=== PATIENT | male | born 1970 | race Caucasian/White ===

== ENCOUNTER → 2019-07-30 | Outpatient (CLI) | payer BC ==
[2019-07-30 16:27] LABS: Anisocytosis Slight; Basophils % (A) 1 %; Eosinophils # (A) 0.2 k/uL (0-0.7); Eosinophils % (A) 5 %; HCT 34.2 % (39.0-53.0); HGB 9.9 gm/dL (13.0-17.5); Hypochromasia Marked; Lymphocytes # (A) 0.7 k/uL (1.0-4.8); Lymphocytes % (A) 22 %; MCH 20.3 pg (25.0-35.0); MCHC 29.1 g/dL (31.0-37.0); MCV 69.8 fL (80.0-100.0); Mean Platelet Volume 5.5; Microcytosis Marked; Monocytes # (A) 0.3 k/uL (0-1.0); Monocytes % (A) 10 %; Neutrophils # (A) 1.9 k/uL (1.3-7.7); Neutrophils % (A) 59 %; Platelet Count 271 k/uL (150-450); WBC 3.2 k/uL (3.8-10.6)
[2019-07-30 16:30] LABS: ALT 20 U/L (21-72); AST 20 U/L (17-59); African American GFR (CKD) >90 (>60 ml/min/1.73 sqM); Albumin 4.3 g/dL (3.5-5.0); Alkaline Phosphatase 53 U/L (38-126); Anion Gap 8 mmol/L; Blood Urea Nitrogen 12 mg/dL (9-20); Calcium 9.4 mg/dL (8.4-10.2); Carbon Dioxide 28 mmol/L (22-30); Chloride 103 mmol/L (98-107); Glucose 148 mg/dL (74-99); Potassium 4.3 mmol/L (3.5-5.1); Sodium 139 mmol/L (137-145); Total Bilirubin 0.3 mg/dL (0.2-1.3); Total Protein 7.3 g/dL (6.3-8.2)
== END | disposition home or self-care (01) ==
LOC: LABPAT 15:13
PROVIDERS: ATTEND Surgery
DX: Z01.812 Encounter for preprocedural laboratory examination (principal)
CPT/HCPCS: 36415; 80053; 85025; 93005

== ENCOUNTER → 2019-07-30 | Outpatient (CLI) | payer BC ==
[2019-07-30 13:23] VITALS: BP 144/80; PULSE 78; TEMP 98.3; BMI 29.6
--- NOTE | 2019-07-30 15:59 | P.HPBAR ---
Bariatric H&P - History & Physicial H&P Date: 07/30/19 History & Physicial: Visit/CC: lap band (night reflux) Patient initial contact: Initial weight: 161.025 kg Initial weight in pounds: 355.00 Height: 6 ft 8 in Initial BMI: 38.9 Last weight: Current weight: 122.289 kg Current weight in pounds: 269.60 Current BMI: 29.6 [place] body weight (based on NIH guidelines): 102.512 kg Excess body weight loss: 66.2% The patient is a 48 year-old M who presents for Bariatric Assessment. Patient resents today for her LAP-BAND adjustment. He's had chronic complaints of dysphagia and GERD. Several years. He has significant reflux at night. Past Medical History Past Medical History: Diabetes Mellitus, GERD/Reflux, Hypertension Additional Past Medical History / Comment(s): Type 2 DM and HTN controlled with medications History of Any Multi-Drug Resistant Organisms: None Reported Past Surgical History: Bariatric Surgery Additional Past Surgical History / Comment(s): Lap band placed 01-10-07 Dr. Rodriguez Past Anesthesia/Blood Transfusion Reactions: No Reported Reaction Past Psychological History: Depression Additional Psychological History / Comment(s): Pt takes Citalopram daily Smoking Status: Current some day smoker Past Alcohol Use History: None Reported Past Drug Use History: None Reported Surgical - Exam Vital Signs Temp Pulse BP 98.3 F 78 144/80 07/30/19 13:17 07/30/19 13:17 07/30/19 13:17 - General well developed, well nourished, no distress - Eyes PERRL - ENT normal pinna - Neck no masses - Respiratory normal expansion - Cardiovascular Rhythm: regular - Abdomen Abdomen: soft, tender Bariatric Assessment & Plan Plan: Patient's lap band was adjusted. 1 mL was removed from his band. The patient then underwent an esophagram and upper GI. The patient has a large prolapse of his LAP-BAND. The band has moved approximately 90. There is significant obstruction from this. The patient will need his LAP-BAND removed. He'll be scheduled for this next week. Patient was instructed on signs of dysphagia and epigastric pain. Patient will return immediately if he has any significant signs of obstruction or significant abdominal pain. Bariatric Checklist Checklist: Plan: Checklist: EGD: 1. Hiatal hernia: 2. H. Pylori: HgbA1c: Vitamin D: Smoking: Current some day smoker Primary care physician referral: Dr. Sylvester ([facility]) Psychiatry clearance: Cardiology clearance: Sleep study: Diet journal: VTE risk score: VTE risk level: Rehab needs at discharge:
--- NOTE | 2019-07-30 17:13 | FL ---
SINGLE CONTRAST BARIUM SWALLOW: CLINICAL HISTORY: 48-year-old male R13.10, pain at lap band, trouble clearing food across the lap ba nd. TECHNIQUE: Single contrast exam performed with only 1.5 ounces of thin barium. Total fluoroscopy time: 1 minute 51 seconds. Total images: 28. FINDINGS: The patient was instructed to take only small swallows at a time given the abnormal orientation of th e left and on the powerplant operator image. Initial imaging findings suggest lap band prolapse. Contrast traverses the esophagus and pools within the distal esophagus above the GE junction. The following a second sw allow, there is a thin stream of contrast which traverses the lap band. Following additional swallows , progressive pooling is demonstrated in the lower esophagus with intermittent episodes of intraesoph ageal reflux. Intermittent thin strands of contrast are demonstrated traversing the lap band. IMPRESSION: Lap band prolapse with moderate to severe obstruction. Patient ingested only 1.5 ounces of contrast. Episodes of intraesophageal reflux are demonstrated and intermittent thin streams of contrast nereyda e the lap band.
== END | disposition home or self-care (01) ==
LOC: BARWHC3 12:36
PROVIDERS: ATTEND Surgery
DX: Z46.51 Encounter for fitting and adjustment of gastric lap band (principal); R13.10 Dysphagia, unspecified; K21.9 Gastro-esophageal reflux disease without esophagitis; F17.200 Nicotine dependence, unspecified, uncomplicated; K95.09 Other complications of gastric band procedure; Z98.84 Bariatric surgery status
CPT/HCPCS: 74220; 99212

== ENCOUNTER 2019-08-27 05:59 | Day surgery (SDC) | payer BC ==
[2019-08-20 15:33] VITALS: BMI 29.6
[~2019-08-27 05:59] MED LIST: LACTATED RINGERS 1,000 ML IV SCH; LIDOCAINE 1% 20 ML VIAL (10MG/ML) FOR IV START INTRADERMA PRN; ONDANSETRON 4 MG/2 ML VIAL IVP ONE
[2019-08-27] MEDS ORDERED: ceFAZolin 3 GM in SODIUM CHLORIDE 0.9% 100 ML IVPB ONE (06:00)
[2019-08-27 06:42] LABS: Glucose,Whole Blood 131 mg/dL (75-99)
[2019-08-27] MEDS ORDERED: MIDAZOLAM 2 MG/2 ML VIAL ONE (07:53)
[2019-08-27] MEDS ORDERED: LIDOCAINE 1% INJ 10MG/ML (20 ML MDV) ONE (07:53)
[2019-08-27] MEDS ORDERED: PROPOFOL 10 MG/ML 20 ML VIAL IV ONE (07:53)
[2019-08-27] MEDS ORDERED: SUCCINYLCHOLINE CHLORIDE 100 MG/5 ML SYR IV ONE (07:53)
[2019-08-27] MEDS ORDERED: ROCURONIUM BROMIDE 10 MG/ML 10 ML VIAL IV ONE (07:53)
[2019-08-27] MEDS ORDERED: GLYCOPYRROLATE 0.2 MG/ML 2 ML VIAL ONE (07:53)
[2019-08-27] MEDS ORDERED: KETOROLAC 30 MG/ML 1 ML VIAL ONE (07:53)
[2019-08-27] MEDS ORDERED: fentaNYL (PF) 50 MCG/ML 2 ML AMP ONE (07:53)
[2019-08-27] MEDS ORDERED: NEOSTIGMINE 1 MG/ML 10 ML VIAL ONE (07:53)
--- NOTE | 2019-08-27 07:55 | P.GSHP ---
History of Present Illness H&P Date: 08/27/19 Chief Complaint: Dysphagia This a 48-year-old male who had LAP-BAND surgery performed over 12 years ago. Patient presents today for laparoscopic removal of LAP-BAND system. Patient is mild dysphagia related to gastric prolapse. Past Medical History Past Medical History: Diabetes Mellitus, GERD/Reflux, Hypertension Additional Past Medical History / Comment(s): TYPE 2 DIABETES, ANEMIA- TO START ON IRON SUPPLEMENT ., LAP BAND PROLAPSE. History of Any Multi-Drug Resistant Organisms: None Reported Past Surgical History: Bariatric Surgery Additional Past Surgical History / Comment(s): Lap band placed 01-10-07 Dr. Rodriguez Past Anesthesia/Blood Transfusion Reactions: No Reported Reaction Past Psychological History: Depression Additional Psychological History / Comment(s): . Smoking Status: Current some day smoker Past Alcohol Use History: None Reported Additional Past Alcohol Use History / Comment(s): SMOKES OCCASIONAL CIGAR IN THE LAST 5 YEARS. Past Drug Use History: None Reported - Past Family History Mother Family Medical History: No Reported History Medications and Allergies Home Medications Medication Instructions Recorded Confirmed Type Citalopram Hydrobromide 10 mg PO DAILY 07/30/19 08/20/19 History [Citalopram HBr] Lisinopril [Zestril] 20 mg PO DAILY 07/30/19 08/20/19 History Multivitamins, Thera [Multivitamin 1 tab PO DAILY 07/30/19 08/20/19 History (formulary)] glipiZIDE [Glucotrol] 10 mg PO [id number] 07/30/19 08/20/19 History Fexofenadine HCl [Jami Allergy] 180 mg PO DAILY PRN 08/20/19 08/20/19 History Iron (States New Prescription) 1 tab PO DIRECTED 08/20/19 08/27/19 History Allergies Allergy/AdvReac Type Severity Reaction Status Date / Time No Known Allergies Allergy Verified 08/20/19 15:05 Surgical - Exam Vital Signs Temp Pulse Resp BP Pulse Ox 98.0 F 80 17 138/78 98 08/27/19 06:26 08/27/19 06:26 08/27/19 06:26 08/27/19 06:26 08/27/19 06:26 - General well developed, well nourished, no distress - Eyes PERRL - ENT normal pinna - Neck no masses - Respiratory normal expansion - Cardiovascular Rhythm: regular - Abdomen Abdomen: soft, non tender Results - Labs Abnormal Lab Results - Last 24 Hours (Table) 08/27/19 Range/Units 06:38 POC Glucose (mg/dL) 131 H (75-99) mg/dL Assessment and Plan Assessment: Dysphagia Gastric prolapse We'll perform laparoscopic removal of LAP-BAND system.
[2019-08-27] MEDS ORDERED: BUPIVACAINE (PF) 0.25% 30 ML VIAL SQ ONE (08:20)
[2019-08-27] MEDS ORDERED: LACTATED RINGERS 1,000 ML IV ONE (08:45)
[2019-08-27 09:09] VITALS: TEMP 97.8
[2019-08-27] MEDS: HYDROmorphone 0.5 MG/0.5 ML SYRINGE IVP PRN ×4 (09:11→09:32)
--- NOTE | 2019-08-27 09:35 | P.OP ---
Date of Procedure: 08/27/19 Preoperative Diagnosis: Dysphagia Postoperative Diagnosis: Dysphagia Procedure(s) Performed: Laparoscopic removal of LAP-BAND system Anesthesia: ALINA Surgeon: Fan Rodriguez Estimated Blood Loss (ml): 5 Pathology: none sent Condition: stable Disposition: PACU Description of Procedure: Patient's placed on operating table in the supine position. He was then placed in dorsal 5 position. He received general anesthesia. His abdomen was prepped and draped in sterile fashion. The skin incision sites were anesthetized 1% local Xylocaine. The skin was incised at the LAP-BAND port site and using blunt and sharp dissection with cautery the LAP-BAND port was dissected free from the subcutaneous tissues. She was then cut and the LAP-BAND port was withdrawn. Using a 5 mm optical trocar under direct visualization. Cavity is entered. The abdomen was insufflated. Next a 5 mm trochars placed in the right epigastric, right lateral, left lateral, position. The original 5 mm trocar was exchanged for a 15 mm trocar. And a 8 mm trochars placed in the left. Local area. The adhesions to the LAP-BAND device were lysed. And then using left cautery and sharp dissection Ashley device was dissected free. Using left cautery the LAP- BAND buckle was then dissected free. The LAP-BAND device then cut. Next the buckle withdrawn from around stomach. Care was taken to identify and preserve the gastric wall. The LAP-BAND device then extracted through the 15 mm trocar site. There is no bleeding seen. The trochars withdrawn. The skin was then closed interrupted 3-0 Monocryl suture. Dermabond was applied. Patient top she will was sent to recovery in stable condition.
[2019-08-27 10:02] VITALS: RESP 18
[2019-08-27 10:17] VITALS: BP 150/69; PULSE 68
== END 2019-08-27 10:38 | disposition home or self-care (01) ==
LOC: OR 05:59
PROVIDERS: ATTEND Surgery
DX: K95.09 Other complications of gastric band procedure (principal); R13.10 Dysphagia, unspecified; K21.9 Gastro-esophageal reflux disease without esophagitis; I10 Essential (primary) hypertension; E11.9 Type 2 diabetes mellitus without complications; D64.9 Anemia, unspecified; F32.9 Major depressive disorder, single episode, unspecified; F17.210 Nicotine dependence, cigarettes, uncomplicated; Z79.84 Long term (current) use of oral hypoglycemic drugs; Z79.899 Other long term (current) drug therapy; Z98.84 Bariatric surgery status
CPT/HCPCS: 86900; 86901; 86850; 43774; J2250; J2710; J0690; J2405; J2001; J3010; J1885; J0330; J2704; J1170

== ENCOUNTER → 2019-09-03 | Outpatient (CLI) | payer BC ==
[2019-09-03 14:22] VITALS: BP 137/76; PULSE 90; RESP 16; TEMP 97.9; BMI 31.1
--- NOTE | 2019-09-03 18:26 | P.HPBAR ---
Bariatric H&P - History & Physicial H&P Date: 09/03/19 History & Physicial: Visit/CC: Band Removal F/U Patient initial contact: Initial weight: 161.025 kg Initial weight in pounds: 355.00 Height: 6 ft 8 in Initial BMI: 38.9 Last weight: Current weight: 128.82 kg Current weight in pounds: 284.00 Current BMI: 31.1 [place] body weight (based on NIH guidelines): 102.512 kg Excess body weight loss: 55.0% The patient is a 48 year-old M who presents for Bariatric Assessment. Patient is status post removal of LAP-BAND device. He is doing quite well. He has no complaints of pain. Past Medical History Past Medical History: Diabetes Mellitus, GERD/Reflux, Hypertension Additional Past Medical History / Comment(s): TYPE 2 DIABETES, ANEMIA- TO START ON IRON SUPPLEMENT ., LAP BAND PROLAPSE. History of Any Multi-Drug Resistant Organisms: None Reported Past Surgical History: Bariatric Surgery Additional Past Surgical History / Comment(s): Lap band placed 01-10-07 Dr. Rodriguez Band Removed 08/27/19 Past Anesthesia/Blood Transfusion Reactions: No Reported Reaction Past Psychological History: Depression Additional Psychological History / Comment(s): . Smoking Status: Current some day smoker Past Alcohol Use History: None Reported Additional Past Alcohol Use History / Comment(s): SMOKES OCCASIONAL CIGAR IN THE LAST 5 YEARS. Past Drug Use History: None Reported - Past Family History Mother Family Medical History: No Reported History Surgical - Exam Vital Signs Temp Pulse Resp BP 97.9 F 90 16 137/76 09/03/19 14:19 09/03/19 14:19 09/03/19 14:19 09/03/19 14:19 - General well developed, well nourished, no distress - Eyes PERRL - ENT normal pinna - Neck no masses - Respiratory normal expansion - Cardiovascular Rhythm: regular - Abdomen Abdomen: soft, non tender Bariatric Assessment & Plan Plan: Status post removal LAP-BAND. Patient follow-up in 8 weeks. Patient's been warned about possible weight gain. Bariatric Checklist Checklist: Plan: Checklist: EGD: 1. Hiatal hernia: 2. H. Pylori: HgbA1c: Vitamin D: Smoking: Current some day smoker Primary care physician referral: Dr. Sylvester ([facility]) Psychiatry clearance: Cardiology clearance: Sleep study: Diet journal: VTE risk score: VTE risk level: Rehab needs at discharge:
== END | disposition home or self-care (01) ==
LOC: BARWHC3 14:08
PROVIDERS: ATTEND Surgery
DX: Z46.51 Encounter for fitting and adjustment of gastric lap band (principal); Z98.84 Bariatric surgery status; F17.200 Nicotine dependence, unspecified, uncomplicated
CPT/HCPCS: 99211